=== PATIENT | female | born 1945 | race Caucasian/White ===

== ENCOUNTER 2019-06-20 08:18 | Outpatient (CLI) | payer MEDICARE ==
[~2019-06-20 08:18] MED LIST: ACET325T14 PO; BISA10SU4 PR; MAGN30OR PO; METH500T97 PO; OXYC-302 PO; SENN1TAB68 PO
== END 2019-06-20 23:59 | disposition home or self-care (01) ==
LOC: ROC 08:18
PROVIDERS: ATTEND Radiology Radiation Oncology
DX: R91.1 Solitary pulmonary nodule (principal); N63.10 Unspecified lump in the right breast, unspecified quadrant
CPT/HCPCS: G0463

== ENCOUNTER → 2019-09-05 | Outpatient (CLI) | payer MEDICARE ==
[~2019-09-05] MED LIST changes: +GADOTERATE 7.5 MMOL/15 ML SYR ONE
== END | disposition home or self-care (01) ==
LOC: CFH 09:38
PROVIDERS: ATTEND Radiology Radiation Oncology
DX: C71.2 Malignant neoplasm of temporal lobe (principal); I67.82 Cerebral ischemia; G93.89 Other specified disorders of brain
CPT/HCPCS: 70553; A9575

== ENCOUNTER 2019-09-06 07:38 | Outpatient (CLI) | payer MEDICARE ==
[~2019-09-06 07:38] MED LIST changes: -GADOTERATE 7.5 MMOL/15 ML SYR ONE
== END 2019-09-06 23:59 | disposition home or self-care (01) ==
LOC: ROC 07:38
PROVIDERS: ATTEND Radiology Radiation Oncology
DX: C71.9 Malignant neoplasm of brain, unspecified (principal); I67.82 Cerebral ischemia
CPT/HCPCS: G0463